=== PATIENT | female | born 1960 | race Caucasian/White ===

== ENCOUNTER 2019-02-14 12:56 | Emergency (ER) | payer OTHER ==
[~2019-02-14] VITALS: Ht 144.8 cm; Wt 88.0 kg
[2019-02-14 12:56] VITALS: BP 151/67
--- NOTE | 2019-02-14 13:56 | NUR ---
EAR LAVAGE DONE ON LEFT EAR. RX PROVIDED. Patient discharged to home in stable condition. Written and verbal after care instructions given. Patient verbalizes understanding of instruction.
== END 2019-02-14 14:04 | disposition home or self-care (01) ==
LOC: ER 13:00
DX: H61.22 Impacted cerumen, left ear (principal); I10 Essential (primary) hypertension; E11.9 Type 2 diabetes mellitus without complications